=== PATIENT | female | born 1980 | race Caucasian/White ===

== ENCOUNTER 2019-11-05 21:13 | Emergency (ER) | payer OTHER ==
[2019-11-05 21:42] VITALS: BP 130/55; PULSE 85; TEMP 98; BMI 60.4
[2019-11-05] MEDS ORDERED: DEXAMETHASONE LIQUID 0.5 MG/5 ML PO ONE (23:09)
[2019-11-05] MEDS ORDERED: DEXAMETHASONE SOD PHOSPHATE 10 MG/1 ML VIAL ONE (23:14)
--- NOTE | 2019-11-05 23:15 | PDOC ---
History of Present Illness - General Chief Complaint: Pain Stated Complaint: KNEE PAIN Time Seen by Provider: 11/05/19 22:56 History Source: Patient Exam Limitations: No Limitations Past History - Travel Traveled outside of the country in the last 30 days: No Close contact w/someone who was outside of country & ill: No - Past Medical History Allergies/Adverse Reactions: Allergies Allergy/AdvReac Type Severity Reaction Status Date / Time No Known Allergies Allergy Verified 11/05/19 21:39 Home Medications: Ambulatory Orders Methylprednisolone [Medrol Dose Ezekiel] 4 mg PO ASDIR #21 tablet 11/05/19 - Psycho Social/Smoking Cessation Hx Smoking History: Never smoked Hx Alcohol Use: No Drug/Substance Use Hx: No Review of Systems - Review of Systems Able to Perform ROS?: Yes Comments:: 11/06/19 01:45 CONSTITUTIONAL: Absent: fever, chills, diaphoresis, generalized weakness, malaise, loss of appetite MUSCULOSKELETAL: Present: Right knee pain absent: myalgia, joint swelling SKIN: Absent: rash, itching, pallor NEUROLOGIC: Absent: headache, focal weakness or paresthesias, dizziness, unsteady gait, seizure, mental status changes, bladder or bowel incontinence PSYCHIATRIC: Absent: anxiety, depression, suicidal or homicidal ideation, hallucinations. Is the patient limited Macedonian proficient: No *Physical Exam - Vital Signs Last Vital Signs Temp Pulse Resp BP Pulse Ox 98.0 F 85 18 130/55 L 99 11/05/19 21:39 11/05/19 21:39 11/05/19 21:39 11/05/19 21:39 11/05/19 21:39 - Physical Exam 11/06/19 01:45 GENERAL: The patient is awake, alert, and fully oriented, in no acute distress. HEAD: Normal with no signs of trauma. EYES: Pupils equal, round and reactive to light, extraocular movements intact, sclera anicteric, conjunctiva clear. EXTREMITIES: The nurse to palpation of the medial aspect of the right knee along the proximal tibia. Negative special testing for the knee. No calf pain. Negative Chiang test. Normal range of motion, no edema. NEUROLOGICAL: Normal speech, normal gait. PSYCH: Normal mood, normal affect. SKIN: Warm, Dry, normal turgor, no rashes or lesions noted. Medical Decision Making - Medical Decision Making 01/20/20 01:46 Patient is a 39-year-old female, morbidly obese, past medical history of rheumatoid arthritis, presents to the ER with right knee pain starting today. She states she was at work when she felt a sudden sharp pain in the right anterior knee. She states it hurts when she walks. Denies trauma, numbness and tingling and weakness the affected extremity. A/P: Arthritis On exam patient with tenderness to palpation of the medial aspect of the right knee just at the proximal tibia. Special testing is negative. No calf pain on exam. Unlikely DVT. X-ray shows decreased joint space between the medial aspect of the right knee. Likely some element of rheumatoid arthritis/osteoarthritis causing her pain. Discharge home with a steroid Dosepak as patient is on meloxicam Orthopedic follow-up given Strict return precautions given I discussed the physical exam findings, ancillary test results and final diagnoses with the patient. I answered all of the patient's questions. The patient was satisfied with the care received and felt comfortable with the discharge plan and treatment plan. The Patient agrees to follow up with the primary care physician/specialist within 24-72 hours. Return precautions were given. Discharge - Discharge Information Problems reviewed: Yes Clinical Impression/Diagnosis: Right knee pain Qualifiers: Chronicity: acute Qualified Code(s): M25.561 - Pain in right knee Condition: Stable Disposition: HOME - Admission No - Additional Discharge Information Prescriptions: Methylprednisolone [Medrol Dose Ezekiel] 4 mg PO ASDIR #21 tablet - Follow up/Referral Referrals: Tyrone Lockwood MD [Staff Physician] - - Patient Discharge Instructions Patient Printed Discharge Instructions: DI for Knee Pain Additional Instructions: You were evaluated for your knee pain today. Is most likely due to arthritis in your knee. Please take the steroid pack as directed starting tomorrow. Take all other home medications as previously directed. Please follow-up orthopedics on Wednesday. Return to the ER for worsening pain, calf pain, numbness and tingling weakness effect extremity Hoy te evaluaron para el dolor de rodilla. Lo ms probable es que se deba a la artritis en la rodilla. Por favor, tome el paquete de esteroides angelita se indica a partir de maana. [place] todos los dems medicamentos caseros angelita se indic anteriormente. Por favor, siga la ortopedia el lunes. Regreso a Urgencias para empeorar el dolor, dolor de pantorrilla, entumecimiento y hormigueo efecto debilidad extremidad Print Language: TURKISH - Post Discharge Activity Work/Back to School Note: Back to Work
== END 2019-11-05 23:34 | disposition home or self-care (01) ==
LOC: JERFT 21:13
DX: M17.11 Unilateral primary osteoarthritis, right knee (principal); E66.01 Morbid (severe) obesity due to excess calories; M06.861 Other specified rheumatoid arthritis, right knee; Z68.44 Body mass index [BMI] 60.0-69.9, adult
CPT/HCPCS: 73560-TC-RT-FY; 99281-25